=== PATIENT | female | born 1945 | race Caucasian/White ===

== ENCOUNTER → 2016-12-07 | Outpatient (CLI) | payer MEDICARE, OTHER ==
[~2016-12-07] MED LIST: AMBIEN 5MG TABLE5 MG PO; BETAPACE 80MG80 MG PO; CIPRO 500MG TA500 MG PO; COLACE 100100 MG/CAP PO; EVISTA 60MG60 MG/TAB PO; FLEXERIL 1010 MG/TAB PO; LEVSIN0.125 M1 PO; LIPITOR 10MG10 MG PO; MIRALAX PA17 GM/Dose PO; NEURONTIN600 MG/TAB PO; NORCO 325 MG-51 TAB PO; PERCOCET 325 MG1 TA3 PO; SENOKOT S 50 MG1 TAB PO; ULTRAM 50MG TAB50 MG PO; ZOFRAN 4MG T4 MG/TAB PO
== END ==
LOC: COL.RAD 13:51
DX: M51.16 Intervertebral disc disorders with radiculopathy, lumbar region (principal); M24.08 Loose body, other site
CPT/HCPCS: A9585

== ENCOUNTER → 2016-12-20 | Outpatient (CLI) | payer MEDICARE, OTHER | LOC: MHCPAIN 11:25 | DX: G89.29 Other chronic pain (principal); M47.817 Spondylosis without myelopathy or radiculopathy, lumbosacral region; M54.16 Radiculopathy, lumbar region; M96.1 Postlaminectomy syndrome, not elsewhere classified | CPT/HCPCS: G0463 ==

== ENCOUNTER → 2016-12-30 | Outpatient (CLI) | payer MEDICARE, OTHER | LOC: MHCPAIN 13:15 | DX: M47.27 Other spondylosis with radiculopathy, lumbosacral region (principal) | CPT/HCPCS: Q9967 ==

== ENCOUNTER → 2017-01-13 | Outpatient (CLI) | payer MEDICARE, OTHER | LOC: MHCPAIN 13:42 | DX: M54.17 Radiculopathy, lumbosacral region (principal) | CPT/HCPCS: Q9967 ==

== ENCOUNTER → 2017-02-22 | Outpatient (CLI) | payer MEDICARE, OTHER | LOC: MC.RAD 16:34 | DX: Z12.31 Encounter for screening mammogram for malignant neoplasm of breast (principal) ==

== ENCOUNTER 2019-08-20 17:10 | Outpatient (CLI) | payer MEDICARE, OTHER ==
[~2019-08-20] VITALS: Ht 154.9 cm; Wt 65.4 kg
[2019-08-20 17:30] VITALS: BP 112/62; PULSE 52; TEMP 98.1
== END 2019-08-20 18:46 | disposition home or self-care (01) ==
LOC: EUO 17:10
DX: E86.0 Dehydration (principal); R19.7 Diarrhea, unspecified
CPT/HCPCS: J7030

== ENCOUNTER → 2019-11-21 | Outpatient (CLI) | payer MEDICARE, OTHER | LOC: MC.RAD 14:50 | DX: Z12.31 Encounter for screening mammogram for malignant neoplasm of breast (principal) ==

== ENCOUNTER → 2020-05-14 | Outpatient (CLI) | payer MEDICARE, OTHER | LOC: COL.VAS 14:15 | DX: Z86.79 Personal history of other diseases of the circulatory system (principal) ==

== ENCOUNTER 2024-02-07 14:57 | Outpatient (CLI) | payer MEDICARE, OTHER ==
[~2024-02-07] VITALS: Ht 154.9 cm; Wt 64.4 kg
[~2024-02-07 14:57] MED LIST changes: +ASPI325T6 PO; +ASPIRIN 32325 MG/TAB PO; +CEFTIN500 MG PO; +CELEBREX 200MG200 MG PO; +DESYREL 50MG50 MG PO; +FOLIC ACID0.4 MG PO; +HAIRSKINNAILS PO; -LIPITOR 10MG10 MG PO; +LIPITOR20 MG PO; +LYRICA 150MG C150 MG PO; +MELATONIN1 MG PO; +NATURAL IRON65 MG PO; +OMEGA-3 1000 MG1 CAP PO; +PREDNISONE20 MG PO; +TYLENOL 500MG500 MG PO; +VITAMIN C500 MG PO; +VITAMIN D31000 I1 PO
[2024-02-07 15:05] VITALS: BP 143/61; PULSE 78; TEMP 97.9
--- NOTE | 2024-02-07 15:14 | NUR ---
PT TOLERATED INJECTION WELL. VS REMAINED WITHIN NORMAL LIMITS. PT FREE FROM ACUTE CONCERNS AND COMPLAINTS UPON DISCHARGE.
[2024-02-07] MEDS ORDERED: Denosumab 60 MG/ML SYRINGE SQ ONE (15:15)
== END 2024-02-07 15:15 | disposition home or self-care (01) ==
LOC: EUO 14:57
DX: M81.0 Age-related osteoporosis without current pathological fracture (principal)
CPT/HCPCS: J0897

== ENCOUNTER 2024-08-13 12:42 | Outpatient (CLI) | payer MEDICARE, OTHER ==
[~2024-08-13] VITALS: Ht 154.9 cm; Wt 68.4 kg
[2024-08-13 12:54] VITALS: BP 123/73; PULSE 75; TEMP 97.8
[2024-08-13] MEDS ORDERED: VIVLODEX10 MG PO (12:57)
[2024-08-13] MEDS ORDERED: Denosumab 60 MG/ML SYRINGE SQ ONE (13:00)
--- NOTE | 2024-08-13 13:12 | NUR ---
PT TOLERATED INJECTION WELL. VS REMAINED WITHIN NORMAL LIMITS. PT AMBULATED INDEPENDENTLY TO MAIN LOBBY. PT FREE FROM ACUTE CONCERNS AND COMPLAINTS UPON DISCHARGE.
== END 2024-08-13 13:16 | disposition home or self-care (01) ==
LOC: EUO 12:42
DX: M81.0 Age-related osteoporosis without current pathological fracture (principal)
CPT/HCPCS: J0897